=== PATIENT | female | born 1990 | race Caucasian/White ===

== ENCOUNTER 2017-02-13 01:07 | Emergency (ER) | payer MEDICAID, OTHER ==
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
[2017-02-13] MEDS ORDERED: ONDANSETRON 4 MG/2 ML VIAL IVP ONE (01:13)
[2017-02-13] MEDS ORDERED: NS 1,000 ML IV ONE (01:13)
[2017-02-13] MEDS ORDERED: HYDROmorphONE/DILAUDID 1 MG/ML SYR IVP ONE (01:14)
[2017-02-13] MEDS ORDERED: ONDANSETRON 4 MG/2 ML VIAL ONE (03:20)
[2017-02-13 03:31] VITALS: BP 117/76; PULSE 100; RESP 18; TEMP 97.7; O2SAT 95
== END 2017-02-13 03:29 | disposition home or self-care (01) ==
LOC: EDUNIT#
PROC: 0CQ1XZZ Repair Lower Lip, External Approach (ICD-10-PCS; principal; 2017-02-13)
DX: S01.511A Laceration without foreign body of lip, initial encounter (principal); Y04.0XXA Assault by unarmed brawl or fight, initial encounter
CPT/HCPCS: 96374; J1170; J2405